=== PATIENT | male | born 1965 | race Caucasian/White ===

== ENCOUNTER 2022-11-08 22:46 | Emergency (ER) | payer SELFPAY ==
[~2022-11-08] VITALS: Ht 152.4 cm; Wt 50.0 kg
[2022-11-08 23:45] VITALS: BP 116/82; PULSE 83; RESP 18; TEMP 98.5; O2SAT 100
== END 2022-11-09 01:07 | disposition home or self-care (01) ==
LOC: ER 22:46
DX: M25.539 Pain in unspecified wrist (principal); Z53.21 Procedure and treatment not carried out due to patient leaving prior to being seen by health care provider
CPT/HCPCS: 99281